=== PATIENT | male | born 1955 | race Caucasian/White ===

== ENCOUNTER 2018-09-05 13:35 | Emergency (ER) | payer MEDICAID ==
[~2018-09-05] VITALS: Ht 172.7 cm; Wt 63.5 kg
[2018-09-05 13:40] VITALS: BP 91/52
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
[2018-09-05] MEDS ORDERED: Bacitracin Oint UD TOPIC ONE (14:15)
[2018-09-05] MEDS ORDERED: Albuterol/Ipratropium 3ml neb HHN ONE (14:15)
[2018-09-05] MEDS ORDERED: Isovue-300 100ml vial INJ PRN (14:15)
[2018-09-05 14:22] LABS: HEMATOCRIT 26.4 % (42.0-52.0); HEMOGLOBIN 8.5 G/DL (14.2-18.0); MEAN CORPUSCULAR VOLUME 93 FL (80-99); PLATELET COUNT 58 K/UL (150-450); RED BLOOD COUNT 2.85 M/UL (4.70-6.10); RED CELL DISTRIBUTION WIDTH 17.4 % (11.6-14.8); WHITE BLOOD COUNT 4.3 K/UL (4.8-10.8)
[2018-09-05 14:32] LABS: INR 1.2 (0.9-1.1)
[2018-09-05 14:36] LABS: ANION GAP 9 mmol/L (5-15); BLOOD UREA NITROGEN 25 mg/dL (7-18); CALCIUM 8.3 MG/DL (8.5-10.1); CARBON DIOXIDE 21 MMOL/L (21-32); CHLORIDE 115 MMOL/L (98-107); CREATININE 1.6 MG/DL (0.55-1.30); POTASSIUM 3.2 MMOL/L (3.5-5.1); SODIUM 145 MMOL/L (136-145)
[2018-09-05 14:40] LABS: ALANINE AMINOTRANSFERASE 82 U/L (12-78); ALBUMIN 1.7 G/DL (3.4-5.0); ALBUMIN/GLOBULIN RATIO 0.4 (1.0-2.7); ALKALINE PHOSPHATASE 211 U/L (46-116); ASPARTATE AMINO TRANSFERASE 115 U/L (15-37); BILIRUBIN,TOTAL 0.7 MG/DL (0.2-1.0)
[2018-09-05 15:18] VITALS: BP 82/50
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
--- NOTE | 2018-09-05 15:38 | Diagnostic Imaging Report ---
Indication: Neck pain, status post fall Technique: Spiral acquisitions obtained through the cervical spine. No IV contrast utilized. Multiplanar reconstructions were generated. Total dose length product 269.52 mGycm. CTDIvol(s) 12.59 mGy. Dose reduction achieved using automated exposure control. Comparison: none Findings: Bony alignment is normal. Vertebral body heights are preserved. The disc spaces are preserved. No acute fractures. No dislocations. No prevertebral soft tissue swelling. There is minimal narrowing of the right C5-6 neural foramen. No significant disc bulge or protrusion or spinal stenosis. There is minimal narrowing of the left C6-7 neural foramen. No significant disc bulge or protrusion or spinal stenosis. The remaining lists levels, no significant disc bulge or protrusion, spinal stenosis, or neural foraminal stenosis. The included extraspinal soft tissues are unremarkable. Impression: No acute bony trauma Mild degenerative changes, as described The CT scanner at [facility] is accredited by the [employer] and the scans are performed using protocols designed to limit radiation exposure to as low as reasonably achievable to attain images of sufficient resolution adequate for diagnostic evaluation.
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
[2018-09-05 17:17] VITALS: BP 82/50
[2018-09-05 18:37] VITALS: BP_SYST 82; BP_SYST 90; BP_DIAS 50; BP_DIAS 64
[2018-09-05 19:45] VITALS: BP 104/57
== END 2018-09-05 19:45 | disposition short-term general hospital (02) ==
LOC: EDBD 13:35 → EMR 14:07 → EDBEDREQ 15:44 → EMR 19:45
DX: S00.83XA Contusion of other part of head, initial encounter (principal); S32.009A Unspecified fracture of unspecified lumbar vertebra, initial encounter for closed fracture; S22.32XA Fracture of one rib, left side, initial encounter for closed fracture; W05.1XXA Fall from non-moving nonmotorized scooter, initial encounter; Y92.89 Other specified places as the place of occurrence of the external cause; D69.6 Thrombocytopenia, unspecified; R18.8 Other ascites; Z88.0 Allergy status to penicillin
CPT/HCPCS: 36415; 70450; 72125; 74176; 80053; 82962; 85007; 85025; 85610; 85730; 94640; 94664; 99284; J7620